=== PATIENT | male | born 1945 | race Caucasian/White ===

== ENCOUNTER 2016-07-24 08:45 | Emergency (ER) | payer OTHER, BC ==
[~2016-07-24] VITALS: Ht 203.2 cm; Wt 158.8 kg
[2016-07-24 11:23] VITALS: BP 152/74
== END 2016-07-24 11:23 | disposition home or self-care (01) ==
LOC: ED 08:45
DX: S52.572A Other intraarticular fracture of lower end of left radius, initial encounter for closed fracture (principal); S52.615A Nondisplaced fracture of left ulna styloid process, initial encounter for closed fracture; S93.401A Sprain of unspecified ligament of right ankle, initial encounter; E78.00 Pure hypercholesterolemia, unspecified; E66.9 Obesity, unspecified; W18.09XA Striking against other object with subsequent fall, initial encounter; Y93.89 Activity, other specified; Y92.89 Other specified places as the place of occurrence of the external cause; Y99.8 Other external cause status